=== PATIENT | female | born 1965 | race Caucasian/White ===

== ENCOUNTER 2017-04-02 10:08 | Observation (INO) | payer OTHER ==
[~2017-04-02] VITALS: Ht 167.6 cm; Wt 124.7 kg
[~2017-04-02 10:08] MED LIST: ACETAMINOPHEN325 M1 PO; AMITRIPTYLINE H25 M2; AMITRIPTYLINE H25 M3 PO; AUGMENTIN 875875 MG PO; CLOPIDOGREL75 MG PO; COUMADIN 2.5MG2.5 M1 PO; COUMADIN 5 MG TA5 M1 PO; COUMADIN7.5 MG PO; FLEXERIL PO; GLIPIZIDE 10 MG10 MG PO; GLUCOPHAGE500 MG PO; HYDROCODON-ACE1 EAC7 PO; JANTOVEN5 MG PO; LEVSIN PO; LISINOPRIL20 MG PO; MAGNESIUM400 MG PO; MEDROLDOSEPACK PO; MOBIC15 MG PO; NEURONTIN 300300 M1 PO; NORCO 5-325 TA1 EACH PO; ONGLYZA5 MG PO; OXYCONTIN PO; PLAVIX 75 MG TA75 M1 PO; PRAVACHOL40 MG PO; PRILOSEC 20 MG20 MG PO; PULMICORT FLE180 MCG IH; SIMVASTATIN20 MG PO; SINGULAIR 10 MG10 M1 PO; TRIAMCINOLONE A80 G2 TOP; VENTOLIN HFA 1818 GM INH; VITAMIN K100 MCG; ZANTAC 150MG T150 MG PO; ZYRTEC10 M5 PO
[2017-04-02 10:16] VITALS: BP 140/110
[2017-04-02] MEDS ORDERED: NOVOLOG100 UNIT/1 SUBQ (10:22)
[2017-04-02 10:50] LABS: ABSOLUTE BASOPHILS 0.1 thou/uL (0.0-0.2); ABSOLUTE EOSINOPHILS 0.2 thou/uL (0.0-0.7); ABSOLUTE LYMPHOCYTES 1.8 thou/uL (0.8-5.3); ABSOLUTE MONOCYTES 0.3 thou/uL (0.0-1.2); ABSOLUTE NEUTROPHILS 6.4 thou/uL (1.6-8.1); BASOPHILS 0.7 %; EOSINOPHILS 1.9 %; HEMATOCRIT 37.9 % (37.0-47.0); HEMOGLOBIN 11.9 gm/dL (12.0-15.0); LYMPHOCYTES 21.1 %; MCH 24.8 pg (26.0-34.0); MCHC 31.4 g/dL (28.0-37.0); MCV 78.9 fL (80.0-100.0); MONOCYTES 3.4 %; MPV 8.4 fl. (7.2-11.1); NUCLEATED RBCS 0 /100WBC; PLATELET COUNT* 266 thou/uL (150-400); POLYS 72.9 %; RBC 4.81 mil/uL (4.20-5.00); RDW-CV 17.9 % (10.5-14.5); WBC 8.8 thou/uL (4.0-11.0)
[2017-04-02 10:56] LABS: ANION GAP 9 mmol/L (7-16); BUN 6 mg/dL (7-18); CALCIUM 8.7 mg/dL (8.5-10.1); CHLORIDE 97 mmol/L (98-107); CO2 30 mmol/L (21-32); CREATININE 0.9 mg/dL (0.6-1.3); GLUCOSE 364 mg/dL (70-99); POTASSIUM 4.4 mmol/L (3.5-5.1); SODIUM 136 mmol/L (136-145)
[2017-04-02 11:04] LABS: ALBUMIN 3.3 g/dL (3.4-5.0); ALKALINE PHOSPHATASE 134 U/L (46-116); SGOT 30 U/L (15-37); SGPT 30 U/L (30-65); TOTAL BILIRUBIN 0.2 mg/dL (<0.1-1.0); TOTAL PROTEIN 7.4 g/dL (6.4-8.2); TROPONIN-I LEVEL <0.06 ng/mL (<0.06)
[2017-04-02 14:09] VITALS: BP 119/62
[2017-04-02 14:17] VITALS: BP 114/64
[2017-04-02] MEDS ORDERED: LEVEMIR SUBQ (15:04)
[2017-04-02] MEDS ORDERED: MOBIC7.5 MG PO (15:05)
[2017-04-02 15:33] VITALS: BP 117/69
--- NOTE | 2017-04-02 16:10 | EKG ---
[place] [address] ELECTROCARDIOGRAM REPORT Name: DEEPIKABijanLILY Room: [address] ADM IN .R.#: [id number] Admission: 04/02/17 Attend Phys: Andrew Palacios Discharge: Date of : 67 Report #: [id number] THIS REPORT FOR: //name// [facility] ED Test Date: 2017-04-02 Test Time: 10:16:54 Pat Name: LILY COOK Department: Room: [facility] Gender: F Pad Hand: STUDENT : 1965 Requested By: Dav Menchaca Order Number: [id number] MD: Dennis Pizano Measurements Intervals Robinson Rate: 102 P: 58 MO: 175 QRS: -12 QRSD: 98 T: 55 QT: 331 QTc: 432 Interpretive Statements Sinus tachycardia Probable left atrial enlargement Low voltage, extremity and precordial leads ST elev, probable normal early repol pattern Baseline wander in lead(s) II,III,aVF Compared to ECG 06/01/2014 12:06:45 no change Electronically Signed On 04-02-2017 16:09:49 HEALTH AND WELLNESS COORDINATOR by Dennis Pizano [email or web address] <ELECTRONICALLY SIGNED> By: Dennis Pizano MD, FACC 04/02/17 1609 1016 1016 Dennis Pizano MD, FAC /EPI
[2017-04-02 17:35] LABS: INR 3.1; PROTIME 29.4 Seconds (9.20-11.50)
--- NOTE | 2017-04-02 18:04 | NUR ---
VSS. CARDIAC MONITORING INPLACE WITH NO CHANGES THIS SHIFT. NIH COMPLETED CHARTED. PT HAS NOTED NUMBNESS/TINGLING AND WEAKNESS TO LEFT UE. MRI'S COMPELTED. PLAN TO HAVE STRESS TEST TODAY. PT HAS HAD NO COMPLAINTS OF PAIN OR DISCOMFORT THIS SHIFT. PT IS UP INDEPENDENTLY IN ROOM. HOURLY ROUNDING. INR 3.1 COUMADIN HELD. CALL LIGHT IS WITHIN REACH. WILL CONTINUE TO MONTIOR FOR DURATION OF SHIFT.
[2017-04-02 20:00] VITALS: BP 103/66
--- NOTE | 2017-04-02 20:00 | NUR ---
RECEIVED REPORT AND ASSUMED CARE OF PT. ASSESSMENT COMPLETED. NIH COMPLETED FOR SCORE OF 1 DUE TO LT ARM TINGLING AND UNABLE TO SAY DULL OR SHARP. C/O HEADACHE, HAS BEEN THERE FOR SEVERAL DAYS. GAIT STEADY TO AND FROM BR. TELEMETRY ON SHOWING SR. WILL CONT TO MONITOR AND ASSIST NEEDED.
[2017-04-02 23:24] VITALS: BP 124/62
[2017-04-03 04:26] VITALS: BP 134/72
--- NOTE | 2017-04-03 06:06 | NUR ---
SLEPT WELL. WHILE AWAKE HAVING A DIFFICULT TIME GETTING PAIN IN BACK AND HEAD UNDER CONTROL WITH IV PAIN MED AND PO. NPO SINCE FL FOR STRESS TEST TODAY. INDEPENDENT BRP WITH STEADY GAIT. TELEMETRY CONT TO SHOW SR. UNABLE TO REACH PAIN GOAL TONIGHT. HOURLY ROUNDING OBSERVED.
[2017-04-03 06:24] LABS: ABSOLUTE EOSINOPHILS 0.2 thou/uL (0.0-0.7); ABSOLUTE LYMPHOCYTES 2.2 thou/uL (0.8-5.3); ABSOLUTE MONOCYTES 0.5 thou/uL (0.0-1.2); ABSOLUTE NEUTROPHILS 5.8 thou/uL (1.6-8.1); BASOPHILS 0.5 %; EOSINOPHILS 2.2 %; HEMATOCRIT 38.5 % (37.0-47.0); HEMOGLOBIN 11.9 gm/dL (12.0-15.0); LYMPHOCYTES 24.9 %; MCH 24.5 pg (26.0-34.0); MCHC 30.9 g/dL (28.0-37.0); MCV 79.3 fL (80.0-100.0); MONOCYTES 5.6 %; MPV 8.4 fl. (7.2-11.1); NUCLEATED RBCS 0 /100WBC; PLATELET COUNT* 278 thou/uL (150-400); POLYS 66.8 %; RBC 4.85 mil/uL (4.20-5.00); RDW-CV 17.6 % (10.5-14.5); WBC 8.6 thou/uL (4.0-11.0)
[2017-04-03 06:55] LABS: ALBUMIN 3.1 g/dL (3.4-5.0); ALKALINE PHOSPHATASE 130 U/L (46-116); ANION GAP 6 mmol/L (7-16); BUN 6 mg/dL (7-18); CALCIUM 8.5 mg/dL (8.5-10.1); CHLORIDE 100 mmol/L (98-107); CO2 32 mmol/L (21-32); CREATININE 0.7 mg/dL (0.6-1.3); GLUCOSE 220 mg/dL (70-99); POTASSIUM 3.8 mmol/L (3.5-5.1); SGOT 42 U/L (15-37); SGPT 33 U/L (30-65); SODIUM 138 mmol/L (136-145); TOTAL BILIRUBIN 0.3 mg/dL (<0.1-1.0); TOTAL PROTEIN 7.1 g/dL (6.4-8.2); TROPONIN-I LEVEL <0.06 ng/mL (<0.06)
[2017-04-03 07:04] LABS: CHOLESTEROL 151 mg/dL (<200); HDL CHOLESTEROL 25 mg/dL (>40); LDL CHOLESTEROL 63 mg/dL (<100); TRIGLYCERIDE 315 mg/dL (<150); VLDL 63 mg/dL (<40)
[2017-04-03 07:05] LABS: SERUM ASSESSMENT Clear
--- NOTE | 2017-04-03 07:36 | CON ---
[address] [address] CONSULTATION Name: JOYCELILY L Room: [address] IN M.R.#: [id number] Admission: 04/02/17 Attend Phys: Andrew Palacios Discharge: Date of : 67 Report #: [id number] THIS REPORT FOR: //name// CC: Justin Perry INDICATION: Chest pain. HISTORY OF PRESENT ILLNESS: The patient is a 51-year-old white female with no prior history of coronary artery disease. She had a stress echocardiogram many years ago that was unremarkable. Risk factors include hypertension, hyperlipidemia, tobacco use and obesity. She has a history of arterial clotting with percutaneous intervention with a drug-coated balloon to her left superficial femoral artery several years ago. There is mention in the notes of an aortic stent. I cannot find notes to that effect. At the time of her intervention to her left lower extremity, she was having claudication. There is no history of atherosclerotic disease. There is no history of myocardial infarction. The patient presented to the hospital with a focal chest discomfort at the left of sternal area persisting from noon today until the time of my interview 4 hours later. She had some associated headache and left arm numbness. This occurred at rest and was not exacerbated with activity. There were no exacerbating or relieving factors. She had some mild diaphoresis and mild nausea with this. She reports dyspnea with exertion. She is not having orthopnea. She has intermittent leg swelling, but none presently. She denies syncope. She denies palpitations. CARDIAC RISK FACTORS: Include tobacco use, hyperlipidemia, type 2 diabetes mellitus, hypertension and family history of coronary artery disease. PAST MEDICAL HISTORY: 1. 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 2. TIA. 3. Chronic tobacco use. 4. Hypertension. 5. Dyslipidemia. 6. Type 2 diabetes mellitus. 7. Colitis. PAST SURGICAL HISTORY: 1. Hysterectomy. 2[place] [address] CONSULTATION Name: LILY COOK Room: [address]#: [id number] Admission: 04/02/17 Attend Phys: Andrew Palacios Discharge: Date of : 67 Report #: [id number] 3. Lower extremity blood clotting. FAMILY HISTORY: The patient's father had an aneurysm. The patient's mother had heart disease. SOCIAL HISTORY: The patient is . She smokes 5-7 cigarettes daily, drinks alcohol occasionally. ALLERGIES: None documented. CURRENT MEDICATIONS: Elavil 25 mg at bedtime, Plavix 75 mg daily, Neurontin 300 mg b.i.d., insulin q.a.c., lisinopril 20 mg daily, metformin 1000 mg b.i.d., pravastatin 40 mg daily, warfarin 5 mg Thursday and Thursday, 7.5 mg every other day. REVIEW OF SYSTEMS: A 14-point review of systems is positive for cough productive of clear sputum, chest discomfort as outlined above, dyspnea, history of heart murmur, history of lower extremity edema, type 2 diabetes mellitus, blood in stool with colitis, history of anemia. She wears reading glasses without acute visual loss and has dentures. Otherwise, 14-point review of systems is unremarkable. PHYSICAL EXAMINATION: VITAL SIGNS: Blood pressure 117/69, pulse 84 and regular. GENERAL: This is an obese white female, in no distress. Mood and affect somewhat blunted. HEENT: Extraocular muscles intact. Mucous membranes are moist. NECK: Shows no obvious jugular venous distention. There are no carotid bruits. CHEST: Reveals clear lung garcia without wheezes, rales or rhonchi. CARDIOVASCULAR: Reveals a regular rhythm with normal S1 and S2. I do not appreciate gallop or murmur. ABDOMEN: Reveals normal bowel sounds. The abdomen is protuberant, soft and nontender. EXTREMITIES: Shows no edema. Peripheral pulses 2+ and easily palpable. SKIN: Dry. A 12-lead EKG shows sinus rhythm with no significant ST or T-wave abnormalities. LABORATORY DATA: Reviewed. NT-proBNP is normal. Troponins are unremarkable. IMPRESSION AND RECOMMENDATION: 1. Atypical chest pain in a patient with multiple risk factors. We will obtain noninvasive stress testing. Further intervention will be pending the results of that study. 2. Hypertension, adequately controlled on current regimen. 3. History of arterial thrombosis on both warfarin [place] [address] CONSULTATION Name: LILY COOK Room: [address]#: [id number] Admission: 04/02/17 Attend Phys: Andrew Palacios Discharge: Date of : 67 Report #: [id number] with goal INR of 2.0-3.5. 4. Dyslipidemia. Repeat fasting lipid profile and adjust to keep LDL cholesterol as close to 70 as possible in this patient with diabetes. 5. Tobacco use. Cessation has been discussed and advised. 6. Hypothyroidism, on replacement. 7. History of colitis, follows with [facility]. <ELECTRONICALLY SIGNED> By: Jose Fernández MD, FACC 04/03/17 0736 1723 1858Jose Fernández MD, FACC /nt
[2017-04-03 08:45] VITALS: BP 113/68
--- NOTE | 2017-04-03 09:08 | NUR ---
ASSUMED PT CARE 0730. PT A/O X'S 4. C/O OF HEADACHE 05/19 AND BACK PAIN 08/18. PT REPORTS SHE HAS BACK PAIN AT HOME AND HAS PRESCRIBED ALIEVE. PT REPORTS SHE HAS A FRACTURED VERTEBRA. PT DENIES FALLS, CAR INJURIES AND UNSUSRE HOW SHE OBTAINED FRACTURE. PT REPORTS SHE HAD CT LAST SUMMER TO CONFIRM. NIH SCORE 1 FOR NUMBNESS IN LEFT SIDE OF FACE AND LEFT ARM. VSS. PT NPO FOR STRESS TEST. CARE PLAN DISCUSSED WITH PT. PT COMMUNICATES UNDERSTANDING. PT UP AD KELSIE. FALL AGREEMENT DISCUSSED AND PAPER SIGNED AND PLACED IN CHART. WILL CONTINUE PLAN OF CARE.
--- NOTE | 2017-04-03 09:20 | NUR ---
P.T. ORDERS RECEIVED. CHART REVIEWED. CT AND MRI NEGATIVE FOR ACUTE PROCESS. NSG NOTES, NSG AND PT INDICATE PT HAS BEEN UP AD KELSIE IN ROOM W/O DIFFICULTY. PT HAS NO CONCERNS RE BASIC FUNCTIONAL MOBILITY. PT INDICATES SHE HAS BEEN GOING TO OUTPT P.T. FOR LOW BACK PAIN. SUGGESTED TO PT THAT IF HEADACHE AND LUE SYMPTOMS PERSIST TO PURSUE OUTPT P.T. FOR NECK/SHOULDER FROM CURRENT P.T. NO ACUTE P.T. INTERVENTION INDICATED AT THIS TIME.
--- NOTE | 2017-04-03 09:44 | NUR ---
RECIEVED CONSULT FOR POSSIBLE REHAB ADMISSION. CONSULT HAS BEEN ACKNOWLEDGED BY TOOL DESIGN ENGINEER AND DR. LUBIN. PT ADMITTED FOR POSSIBLE TIA VS STROKE. ALL IMAGING AND STROKE WORKUP NEGATIVE SO FAR. PT/OT/ST EVALUATIONS ARE PENDING. CARDIOLOGY WORK UP IN PROGRESS. NURSING REPORTS Pt IS UP IN ROOM AD KELSIE. WILL FOLLOW ALONG WITH Pt TO SEE FURTHER WORKUP AND EVALUATIONS TO DETERMINE IF Pt. WOULD QUALIFY FOR ACUTE REHAB. THANK YOU FOR THIS REFERRAL.
[2017-04-03 12:09] VITALS: BP 132/42
--- NOTE | 2017-04-03 12:14 | NUR ---
PT CONTINUE TO C/O OF HEADACHING AND LOWER BACK PAIN. DR NOTIFIED ASKED FOR PO HYDROCODONE. AWAITING ORDERS.
--- NOTE | 2017-04-03 12:23 | 2DMMODE ---
[place] [address] 2 D/M-MODE ECHOCARDIOGRAM Name: JEANINE COOKSA Thakkar Room: [address] Good Solitario#: [id number] Admission: 04/02/17 Attend Phys: Navid Perry Discharge: Date of : 67 Date of Service: 04/03/17 1222 Report #: [id number] THIS REPORT FOR: //name// APPROVED REPORT Study performed: 04/03/2017 10:36:02 EXAM: Comprehensive 2D, Doppler, and color-flow Echocardiogram Patient Location: Out-Patient Status: routine BSA: 2.29 HR: 94 bpm BP: 113/68 mmHg Rhythm: NSR Other Information Study Quality: Good Indications Chest Pain 2D Dimensions LVEF(%): 65.19 (>50%) IVSd: 12.88 (7-11mm) LVOT Diam: 20.40 (18-24mm) LVDd: 40.93 mm PWd: 12.09 (7-11mm) Ascending Ao: 24.58 (22-36mm) LVDs: 26.47 (25-40mm) Aortic Root: 29.70 mm Graves's LVEF: 65.19 % Volumes Left Atrial Volume (Systole) LA ESV Index: 15.30 mL/m2 Aortic Valve AoV Peak Frank.: 1.80 m/s AO Peak Gr.: 13.00 mmHg LVOT Max P.38 mmHg AO Mean Gr.: 6.98 mmHg LVOT Mean P.24 mmHg LVOT Max V: 1.45 m/s AO V2 VTI: 29.17 cm LVOT Mean V: 0.95 m/s WARREN (VTI): 2.87 cm2 LVOT V1 VTI: 25.60 cm Mitral Valve E/A Ratio: 1.11 [place] [address] 2 D/M-MODE ECHOCARDIOGRAM Name: LILY COOK Room: [address] Good Solitario#: [id number] Admission: 04/02/17 Attend Phys: Navid Perry Discharge: Date of : 67 Date of Service: 04/03/17 1222 Report #: [id number] MV Decel. Time: 223.77 ms MV E Max Frank.: 0.92 m/s MV PHT: 64.89 ms MVA (PHT): 3.39 cm2 TDI E/Lateral E': 6.13 E/Medial E': 6.57 Medial E' Frank.: 0.14 m/s Lateral E' Frank.: 0.15 m/s Pulmonary Valve PV Peak Frank.: 1.17 m/s PV Peak Gr.: 5.51 mmHg Left Ventricle The left ventricle is normal size. There is normal LV segmental wall motion. Mild concentric left ventricular hypertrophy.. Left ventricular systolic function is normal. The left ventricular ejection fraction is within the normal range. LVEF is 60-65%. The left ventricular diastolic function is normal. Right Ventricle The right ventricle is normal size. The right ventricular systolic function is normal. Atria The left atrium size is normal. The right atrium size is normal. Aortic Valve The aortic valve is normal in structure. No aortic regurgitation is present. There is no aortic valvular stenosis. Mitral Valve The mitral valve is normal in structure. There is no mitral valve regurgitation noted. No evidence of mitral valve stenosis. Tricuspid Valve The tricuspid valve is normal in structure. Unable to assess PA pressure. Trace tricuspid regurgitation. Pulmonic Valve Pulmonic valve is not well visualized. There is no pulmonic valvular regurgitation. Great Vessels The aortic root is normal in size. [place] [address] 2 D/M-MODE ECHOCARDIOGRAM Name: LILY COOK Room: [address] Good Solitario#: [id number] Admission: 04/02/17 Attend Phys: Navid Perry Discharge: Date of : 67 Date of Service: 04/03/17 1222 Report #: [id number] visualized. Pericardium There is no pericardial effusion. <Conclusion> Mild concentric left ventricular hypertrophy.. LVEF is 60-65%. <ELECTRONICALLY SIGNED> By: Dennis Pizano MD, FACC 04/03/171221 21 21 Dennis Pizano MD, FACC /INF
--- NOTE | 2017-04-03 13:36 | NUR ---
NO OT AT THIS TIME, PT IS INDEP WITH ALL BADLS AND DEMONSTRATES FULL AROM AND FUNCTION OF RIGHT AND LEFT UE. PLAN TO D/C THIS DATE HOME
[2017-04-03 15:10] LABS: GLYCOHEMOGLOBIN (HGB A1C) 11.8 % (4.8-5.6)
[2017-04-03] MEDS ORDERED: ASPIRIN325 PO (15:45)
[2017-04-03] MEDS ORDERED: LIPITOR10 MG PO (15:51)
[2017-04-03 16:48] VITALS: BP 132/42
--- NOTE | 2017-04-03 16:55 | NUR ---
CALLED DR ASKED IF WANTED LIPITOR RESUMED PT DID NOT HAVE MEDICATION FOR CHOLESTEROL. SCRIPT CALLED IN . PT HAS PRAVASTATIN, CANCELLED SCRIPT OF LIPITOR.
--- NOTE | 2017-04-03 17:00 | NUR ---
RECEIVED DISCHARGE ORDERS. IV AND PATTERN FILER DC'D. ALL BELONGINGS PACKED UP AND LEFT WITH PT. PT EDUCATED TO F/U WITH PCP, CARDIO AND NEURO. EVENING MEDICATIONS OFFERED TO PT. PT REFUSED AND REPORTED WILL TAKE GABAPENTING, AND INSULINS AT HOME.
--- NOTE | 2017-04-07 07:23 | CON ---
[address] [address] CONSULTATION Name: LILY COOK Bijan Room: [address] Good Solitario#: [id number] Admission: 04/02/17 Attend Phys: Andrew Palacios Discharge: 04/03/17 Date of : 67 Report #: [id number] THIS REPORT FOR: //name// CC: Krishna Perry DATE OF SERVICE: 04/02/2017 HISTORY OF PRESENT ILLNESS: This is a 51-year-old female patient who was evaluated by me for pretty unusual and unstructured symptoms. Neurological symptom was she had some numbness in the head, some numbness in the whole body. She also had chest pain with some radiation towards the left side. She is being seen by Cardiology in that regard. REVIEW OF SYSTEMS: Indicate that it is pretty extensive. I carried out 14-point review of system. She has a history of DVT. She is on chronic anticoagulation. She indicated she had a stroke in the past. I went back and reviewed her record in the computer and she was seen by Dr. Hurst who was a neurologist here and she had the workup. No acute changes were noticed. It was also noticed that this patient was under a lot of stress at that time. She did have MRI at that time also and that did not show any acute change, but ischemic changes were noticed which were scattered on both sides. Review of systems is otherwise pretty extensive in this patient. Looks like she had a history of TIA, ulcerative colitis, diabetes mellitus, chest pain and she is on anticoagulation. She had a prior history of a hysterectomy and tubal ligation. This was her relevant 14-point review of system. PAST MEDICAL HISTORY: Positive for what she indicates is a stroke, but while reviewing the record it does not look like that was a certain diagnosis. FAMILY HISTORY: Negative for early age stroke. SOCIAL HISTORY: She indicates she smokes, but trying to cut back. PHYSICAL EXAMINATION: This patient's examination indicates that she is alert. She is responsive. She can follow simple commands. Her speech, concentration, fund of knowledge and memory is at her baseline. Cranial nerve examination 2-12 looks unremarkable. She has symmetrical strength, sensation, reflexes and tone in all four extremities. There is no meningeal sign. There is no carotid bruit. Cardiac examination clinically looks unremarkable. No respiratory difficulty and no rhonchi. Her blood pressure is 117/69, respiration is 18, pulse is 84 and temperature is 97.9. LABORATORY DATA: Her INR is 3.1. Blood sugar is 209. She did have an MRI, which [place] [address] CONSULTATION Name: LILY COOK Room: [address] Good Solitario#: [id number] Admission: 04/02/17 Attend Phys: Andrew Palacios Discharge: 04/03/17 Date of : 67 Report #: [id number] IMPRESSION: Unlikely this patient had any stroke or TIA. She is a diabetic. She can develop some neuropathy and the symptom can also come from anxiety and stress. I reviewed an extensive workup she had in the past and she had a high sed rate at one time. I will go ahead and repeat that. Otherwise, she is already on anticoagulation. There is a limited thing to add. RECOMMENDATIONS: 1. I will repeat a sed rate and a few other blood tests. 2. Otherwise, I do not have anything specific to add because she is already on anticoagulation for other reasons and her lipid profile is already ordered. Thank you very much for this referral and if you have any questions, please feel free to contact me. <ELECTRONICALLY SIGNED> By: Chacho Meraz MD 04/07/17 0723 1832 [id number] Meraz MD /nt
--- NOTE | 2017-04-07 07:23 | EEG ---
[address] [address] EEG STUDY REPORT Name: LILY COOK Room: [address] Good Solitario#: [id number] Admission: 04/02/17 Attend Phys: Andrew Palacios Discharge: 04/03/17 Date of : 67 Report #: [id number] THIS REPORT FOR: //name// CC: Krishna Perry DATE OF SERVICE: 04/02/2017 This patient's EEG was done by placing the electrodes by standard 10-20 system of electrode placement. Both referential and sequential montages were used for recording. Background activity in this patient's EEG is about 9 Hz and 30 microvolts. It is a symmetrical activity. Photic stimulation was unremarkable. The patient went to sleep that is associated with bilaterally symmetrical sleep spindle and vertex sharp waves. Throughout the record, no active epileptiform activity was noticed. IMPRESSION: This patient's EEG is within normal limits. Thank you very much for this referral. <ELECTRONICALLY SIGNED> By: Chacho Meraz MD 04/07/17 0723 1046 [id number] Meraz MD /nt
--- NOTE | 2017-04-21 13:47 | CARDNUC ---
[place] [address] CARDIAC NUCLEAR IMAGING REPORT Name: JOYCELILY Room: [address] Altaf#: [id number] Admission: 04/02/17 Attend Phys: Navid Perry Discharge: 04/03/17 Date of : 67 Date of Service: 04/21/17 1347 Report #: [id number] THIS REPORT FOR: //name// ADDENDUM APPROVED REPORT Exam: Nuclear Stress Test Indication: chest pain Patient Location: In-Patient Room #: 218 Stress Tech: Yarelis Card Stress Nurse: Sarah Biswas RN NM Tech:YVONNE White Ht: 5 ft 6 in Wt: 275 lbs BSA: 2.29 m2 BMI: 44.38 Medical History Medical History: cad, cva, hyperlipidemia, hypertension, diabetes Medications: aspirin, warfarin, atorvastatin, plavix, lisinopril Allergies: latex Cardiac Risk Factors: hyperlipidemia, hypertension, dibetes, tobacco, family hx Previous Cardiac Procedures: none Exercise History: Sedentary Stress Test Details Stress Test: Pharmacologic stress testing performed using 0.4 mg of regadenoson per 5 mL given IV over 10 seconds. HR Resting HR: 88 bpm Max Heart Rate (APMHR): 170 bpm Max HR Achieved: 101 bpm Target HR (85% APMHR): 144 bpm % of APMHR: 59 Recovery HR: 1010 bpm HR response to stress: Normal HR response to stress BP Resting BP: 112/80 mmHg Max BP: 80/61 mmHg BP response to stress: Normal blood pressure response [place] [address] CARDIAC NUCLEAR IMAGING REPORT Name: QUINCYAURAJEANINE hTakkarSA Thakkar [address] [id number] Admission: 04/02/17 Attend Phys: Navid Perry Discharge: 04/03/17 Date of : 67 Date of Service: 04/21/17 1347 Report #: [id number] Resting ECG: Sinus Rhythm with early repolarization changes Stress ECG: Sinus Rhythm ST Change: None Recovery ECG: Sinus Rhythm Recovery ST Change: None Clinical Reason for Termination: Completed protocol Stress Symptoms: None Exercise duration: 0 min sec Exercise capacity: 1 METs Functional Aerobic Impairment 59% Nurse Comments pt had recieved morphine prior to test Stress ECG Conclusion neg NM EXAM: Myocardial Perfusion STRESS/REST Imaging Protocol: Stress Tc-99m/Rest Tc-99m 2 days Pharmacologic Stress Pharmacologic stress test was performed by injecting Regadenoson 0.4 mg IV push followed by the intravenous injection of 37.7 mCi of Tc-99m Sestamibi. Time of stress injection: 1020 Time of stress imagin Administration Route: IV Gated Stress SPECT was performed 40 minutes after stress injection. The images were gated to evaluate regional wall motion and calculate left ventricular ejection fraction. Prone imaging was performed. Study Quality Study: Good Artifact: Mild Breast artifact Study Data At rest, the left ventricular ejection fraction was >55%.. Perfusion Normal stress prone and supine images, [place] [address] CARDIAC NUCLEAR IMAGING REPORT Name: LILY COOK Room: [address]#: [id number] Admission: 04/02/17 Attend Phys: Navid Perry Discharge: 04/03/17 Date of : 67 Date of Service: 04/21/17 1347 Report #: [id number] Images were reviewed using [employer]. Wall Motion normal all segments Nuclear Conclusion ECG Findings: negative for ischemia Clinical Findings: negative for ischemia Nuclear Findings: negative for ischemia Exercise Capacity: not assessed Left Ventricular Function: normal Risk Study: low Normal stress only stress nuclear stress test <Conclusion> neg <ELECTRONICALLY SIGNED> By: Jose Fernández MD, [facility] 04/21/17 1347 134 1347 Jose Fernández MD, FACC /INF
== END 2017-04-03 17:47 | disposition home or self-care (01) ==
LOC: M.ERS 10:08 → M.2W 12:52 → M.TBA-ER 12:52 → M.2W 14:24
PROVIDERS: Emergency Medicine Emergency Medical Services; ADMIT Internal Medicine
DX: I69.892 Facial weakness following other cerebrovascular disease (principal); R07.89 Other chest pain; I10 Essential (primary) hypertension; I25.10 Atherosclerotic heart disease of native coronary artery without angina pectoris; E78.5 Hyperlipidemia, unspecified; E11.65 Type 2 diabetes mellitus with hyperglycemia; K21.9 Gastro-esophageal reflux disease without esophagitis; K51.90 Ulcerative colitis, unspecified, without complications; F32.9 Major depressive disorder, single episode, unspecified; E03.9 Hypothyroidism, unspecified; F17.210 Nicotine dependence, cigarettes, uncomplicated; Z86.718 Personal history of other venous thrombosis and embolism

== ENCOUNTER → 2017-11-25 | Outpatient (CLI) | payer OTHER ==
[~2017-11-25] MED LIST changes: +ASPIRIN325 PO; +LEVEMIR SUBQ; +LIPITOR10 MG PO; +MOBIC7.5 MG PO; +NOVOLOG100 UNIT/1 SUBQ
== END ==
LOC: M.CT 08:37
DX: M25.78 Osteophyte, vertebrae (principal); M41.84 Other forms of scoliosis, thoracic region; K76.0 Fatty (change of) liver, not elsewhere classified

== ENCOUNTER → 2019-06-23 | Outpatient (CLI) | payer OTHER | LOC: M.ULTRA 06-14 13:00 | DX: L97.919 Non-pressure chronic ulcer of unspecified part of right lower leg with unspecified severity (principal); L97.929 Non-pressure chronic ulcer of unspecified part of left lower leg with unspecified severity ==